=== PATIENT | male | born 1945 | race Caucasian/White ===

== ENCOUNTER → 2016-08-02 | Outpatient (CLI) | payer MEDICARE, OTHER | END | disposition home or self-care (01) | LOC: GMAJ 14:09 | PROVIDERS: ATTEND Family Medicine | DX: R97.20 Elevated prostate specific antigen [PSA] (principal) ==

== ENCOUNTER → 2016-08-26 | Outpatient (CLI) | payer MEDICARE, OTHER ==
--- NOTE | 2016-08-26 15:54 | CT ---
EXAM DESCRIPTION: CT Sinuses CLINICAL HISTORY: SINUSITIS COMPARISON: None. TECHNIQUE: Noncontrast transaxial CT images of the paranasal sinuses are obtained with coronal and sagittal reconstructed images. This exam was performed according to our departmental dose-optimization program, which includes automated exposure control, adjustment of the mA and/or kV according to patient size and/or use of iterative reconstruction technique . FINDINGS: Frontal sinuses are unremarkable. There are areas of [id number] mucosal thickening in the ethmoid air cells right greater than left. Partial right greater than left ethmoidectomies are seen. Soft tissue attenuation probable nasal polyp in the right nasal canal measuring 8 mm seen. Surgical resection of the right middle and inferior turbinate and left inferior turbinate is seen with mild willard bullosa of the left middle turbinate. There is moderate circumferential mucosal thickening in the right maxillary sinus. Surgical resection of a portion of the medial wall of the maxillary sinuses seen right greater than left. There is 3 mm rightward deviation of the inferior mid right bony nasal septum. Mild mucosal thickening in the floor of the sphenoid sinus on the right is seen.. Calcifications of the carotid arteries are noted. Incidentally noted is probable dehiscence or lack of bony covering of the superior aspect of the right internal carotid artery in the foramen lacerum. IMPRESSION: Postsurgical changes from partial right greater than left ethmoidectomies, resection of the right mid and inferior turbinates and left inferior turbinate, and resection of the medial wall of the maxillary sinus right greater than left. Mild to moderate subacute to chronic sinusitis of the right per the left ethmoid, sphenoid, and maxillary sinuses. Mild rightward deviation of the bony nasal septum. Electronically signed by: Delmer Hale MD 08/26/2016 3:54 PM CDT
== END | disposition home or self-care (01) ==
LOC: CT 10:15
PROVIDERS: ATTEND Otolaryngology Otolaryngology/Facial Plastic Surgery
DX: J32.0 Chronic maxillary sinusitis (principal)

== ENCOUNTER → 2017-02-15 | Outpatient (CLI) | payer MEDICARE, OTHER | LOC: GMAJ 19:18 | PROVIDERS: ATTEND Family Medicine | DX: R97.20 Elevated prostate specific antigen [PSA] (principal) ==

== ENCOUNTER → 2017-07-04 | Outpatient (CLI) | payer MEDICARE, OTHER | LOC: GMAJ 10:20 | PROVIDERS: ATTEND Family Medicine | DX: R97.20 Elevated prostate specific antigen [PSA] (principal); M10.00 Idiopathic gout, unspecified site; I10 Essential (primary) hypertension ==

== ENCOUNTER → 2017-11-13 | Outpatient (CLI) | payer MEDICARE, OTHER ==
--- NOTE | 2017-11-13 16:19 | RAD ---
EXAM DESCRIPTION: Wrist,Left 3 Views (accession [id number]), Elbow, left 3 Views (accession [id number]) CLINICAL HISTORY: PAIN IN LEFT WRIST COMPARISON: None. TECHNIQUE: AP, lateral, and oblique images left elbow and left wrist. FINDINGS: Left elbow. Narrowing of the radiocapitellar joint and minimal radial subluxation of the head. Marginal spurs on the ulnotrochlear joint. Traction spur on the medial humeral epicondyle. Anterior effusion with radiodensity in the space on the lateral view between the humerus and the radial head. Spur on the olecranon process. Questionable calcification around this spur or in the triceps tendon. No definite fracture. Minimal narrowing of the radial scaphoid joint with marginal spurs. Normal bone density with no fracture. Sclerosis of the radius and ulna at the distal radioulnar joint. Narrowing of the index metacarpal phalangeal joint, and same joint on the thumb. No fractures. No abnormal radiodense objects in the soft tissues or joint spaces. IMPRESSION: 1. Anterior elbow joint effusion with displacement of the fat pad. Loose body visible between the radial head and humerus on the lateral view. No definite fracture. Calcifications around the olecranon process. Narrowing of the radiocapitellar joint. Marginal spurs ulnotrochlear joint. 2. Narrowing of the radial scaphoid joint of the left wrist. Narrowing of the thumb and index finger metacarpophalangeal joints. No fracture. Electronically signed by: Anshul Medrano MD 11/13/2017 4:18 PM CDT
--- NOTE | 2017-11-13 16:19 | RAD ---
EXAM DESCRIPTION: Wrist,Left 3 Views (accession [id number]), Elbow, left 3 Views (accession [id number]) CLINICAL HISTORY: PAIN IN LEFT WRIST COMPARISON: None. TECHNIQUE: AP, lateral, and oblique images left elbow and left wrist. FINDINGS: Left elbow. Narrowing of the radiocapitellar joint and minimal radial subluxation of the head. Marginal spurs on the ulnotrochlear joint. Traction spur on the medial humeral epicondyle. Anterior effusion with radiodensity in the space on the lateral view between the humerus and the radial head. Spur on the olecranon process. Questionable calcification around this spur or in the triceps tendon. No definite fracture. Minimal narrowing of the radial scaphoid joint with marginal spurs. Normal bone density with no fracture. Sclerosis of the radius and ulna at the distal radioulnar joint. Narrowing of the index metacarpal phalangeal joint, and same joint on the thumb. No fractures. No abnormal radiodense objects in the soft tissues or joint spaces. IMPRESSION: 1. Anterior elbow joint effusion with displacement of the fat pad. Loose body visible between the radial head and humerus on the lateral view. No definite fracture. Calcifications around the olecranon process. Narrowing of the radiocapitellar joint. Marginal spurs ulnotrochlear joint. 2. Narrowing of the radial scaphoid joint of the left wrist. Narrowing of the thumb and index finger metacarpophalangeal joints. No fracture. Electronically signed by: Anshul Medrano MD 11/13/2017 4:18 PM CDT
== END ==
LOC: RAD 10:35
PROVIDERS: ATTEND Orthopaedic Surgery
DX: M25.532 Pain in left wrist (principal); M25.522 Pain in left elbow; M25.422 Effusion, left elbow

== ENCOUNTER → 2018-05-25 | Outpatient (CLI) | payer MEDICARE, OTHER ==
--- NOTE | 2018-05-27 18:30 | CT ---
Procedure: CT LUNG SCREENING Exam Date: 05/25/2018. Ordering Provider: Ez Chavarria Clinical Indication: TOBACCO USE This patient meets eligibility criteria for low-dose CT lung cancer screening. Comparison: None. Technique: Using a multislice scanner, sequential helical axial imaging was obtained in the thorax, 2.5 mm thickness, 2.5 mm separation, from the level of the thoracic inlet through the lung bases without IV contrast. A low dose protocol was utilized: CTDI: 1.75 mGy. 120. kVp. 45 mA. DLP: 67.13 mGy centimeters. 2D sagittal and coronal reconstructed images, 6.0 mm thickness, were obtained. This exam was performed according to our departmental dose optimization program which includes use of automated exposure control, adjustment of the mA and/or kV according to patient size and/or use of iterative reconstruction technique. Nodule measurements under 10 mm are given as mean value of 3 axes diameters. FINDINGS: Lungs and large airways: Small diffuse pulmonary blebs in a centrilobular orientation more prevalent in the upper lung johnson compared to the lower lung johnson. There are larger blebs and some bulla abutting the pleura. Scarring in the inferior lingula and inferior right middle lobe. Focal thickening inferior and superior right major fissure 7 mm solid radiodense nodule at the left pleural base laterally on axial series 2, image 104 bilateral subpleural smaller nodules and calcifications upper lobes, mid medial left apex. Bilateral pleural-parenchymal scarring and/or dependent atelectasis in the lower lobes posterior recesses. Pleura and space: Apical pleural thickening. Scattered bilateral pleural thickening. No effusion or pneumothorax. Mediastinum and ryan: evaluation limited by low dose technique and lack of IV contrast. Negative. Heart and great vessels: Atherosclerotic calcification in the coronary arteries, aortic arch, descending thoracic aorta, and proximal brachiocephalic vessels. Chest wall, lower neck, axillae: Evaluation also limited by same factors as described above. Unremarkable. Upper abdomen: No free fluid or free air. Included organs are unremarkable. Osseous structures: Evaluation limited by low dose MIP technique. Minimal spondylosis on the included thoracic spine. Sternoclavicular arthrosis bilaterally. IMPRESSION: Centrilobular type emphysematous changes in the lungs bilaterally. Bilateral pleural-parenchymal scarring and bibasilar scarring and or dependent atelectasis. 7 mm solid radiodense nodule in the base of the lung abutting the pleura versus focal pleural thickening. [facility] Best Practice recommendations are for six-month low-dose CT lung screening follow-up. Please see below for Lung RADS category and FOLLOW-UP.* *Lung RADS category Category 3 - Probably benign (1-2% malignancy probability), short term follow-up suggested. Nodules: Solid nodule(s) 6mm to less than 8 mm at baseline, or new 4mm to under 6mm solid nodule. Part solid nodule total diameter 6mm to less than 8mm with solid component less than 6mm, or new less than 6mm total diameter nodule] [ground glass nodule(s) 20mm or greater. Follow-up: Please return for a Low Dose Chest CT in 6 months for re-evaluation. Electronically signed by: Anshul Medrano MD 05/27/2018 6:29 PM [facility]
== END ==
LOC: CT 15:09
PROVIDERS: ATTEND Family Medicine
DX: F17.218 Nicotine dependence, cigarettes, with other nicotine-induced disorders (principal)

== ENCOUNTER → 2018-07-18 | Outpatient (CLI) | payer MEDICARE, OTHER | LOC: GMAJ 14:56 | PROVIDERS: ATTEND Family Medicine | DX: M10.00 Idiopathic gout, unspecified site (principal); Z12.5 Encounter for screening for malignant neoplasm of prostate | CPT/HCPCS: 84550; G0103 ==

== ENCOUNTER → 2018-10-17 | Outpatient (CLI) | payer MEDICARE, OTHER | LOC: RAD 14:35 | PROVIDERS: ATTEND Orthopaedic Surgery | DX: M17.12 Unilateral primary osteoarthritis, left knee (principal); M77.32 Calcaneal spur, left foot; M19.022 Primary osteoarthritis, left elbow; M16.12 Unilateral primary osteoarthritis, left hip ==

== ENCOUNTER → 2018-10-31 | Outpatient (CLI) | payer MEDICARE, OTHER ==
--- NOTE | 2018-10-31 14:14 | MRI ---
EXAM DESCRIPTION: Lumbar Spine w/o Contrast : [facility]. CLINICAL HISTORY: Lumbar radiculopathy COMPARISON: None. TECHNIQUE: Multiplanar, multiple standard sequences, non contrast MRI, lumbar spine. FINDINGS: L5-S1: Disc desiccation and disc space preserved. No significant bulging. Thickening of the bilateral posterior flavum ligaments. Canal is patent. Moderate to severe bilateral foraminal narrowing. L4-L5: Posterior disc bulge 5 mm and minimal inferior migration with effacement of the bilateral subarticular recesses. Bilateral flavum ligament thickening. AP canal diameter 9 mm. Grade 1 retrolisthesis 2 mm. L3-L4: Disc desiccation moderate disc space loss. Anterior bulging and endplate ridging. Small inferior endplate Schmorl's nodes. Trace retrolisthesis. Posterior broad-based disc bulge. Bilateral hypertrophic facet arthrosis and thickening of the posterior ligaments. AP canal diameter 8 mm. Disc bulge into the bilateral foramina with moderate narrowing. Small perineural cysts in the right foramen. L2-L3: Disc desiccation and minimal disc space loss. Anterior disc bulging. Schmorl's node superior posterior L3 endplate. Mild to moderate spondylosis. Trace retrolisthesis. Posterior disc spur complex bulging into the canal. Bilateral hypertrophic facet arthrosis and flavum ligament thickening more left than right. AP canal diameter 7 mm. Mild left foraminal narrowing more right foramen patent. L1-L2: Disc desiccation and minimal disc space loss. Anterior disc bulging and endplate ridging. Tiny posterior disc bulge. Hypertrophic bilateral facets with flavum ligament thickening. AP canal diameter 11 mm. Mild left foraminal narrowing with moderate right foraminal narrowing. T12-L1: Anterior loss of height L1 vertebral body compared to L2 and T12 but no marrow edema. Normal signal in the disc with disc space maintained. Conus terminates at this level. Posterior elements unremarkable. Canal and foramina are patent. Bilateral perineural cysts in the foramen abutting the exiting T12 nerves. Normal signal in the conus and distal included cord. Paravertebral soft tissues muscle atrophy.. Otherwise normal marrow signal in the remaining vertebral bodies and the posterior elements. Vertebral bodies are not compressed at any level. IMPRESSION: 1. Posterior L4-L5 disc bulge also effacing the bilateral subarticular recesses. Could be causing bilateral L5 nerve root compromise. Grade 1 retrolisthesis. Mild central canal stenosis. 2. Posterior broad-based L3-L4 disc bulge into the canal and bilateral foramina. Hypertrophy of the posterior elements with mild to moderate canal stenosis centrally. 3. Disc desiccation and L2-L3 disc space loss and hypertrophy of the posterior elements. Multifactorial moderate central canal stenosis. No foraminal significant narrowing or stenosis. 4. Moderate canal narrowing and right foraminal narrowing at L1 and L2 with tiny posterior disc bulge. Hypertrophy of the posterior facets and ligaments. Electronically signed by: Anshul Medrano MD 10/31/2018 2:11 PM CDT
== END ==
LOC: MRI 09:00
PROVIDERS: ATTEND Orthopaedic Surgery
DX: M51.16 Intervertebral disc disorders with radiculopathy, lumbar region (principal); M48.062 Spinal stenosis, lumbar region with neurogenic claudication; M43.16 Spondylolisthesis, lumbar region

== ENCOUNTER → 2019-10-23 | Outpatient (CLI) | payer MEDICARE, OTHER ==
--- NOTE | 2019-10-23 15:36 | MRI ---
EXAM DESCRIPTION: Lumbar Spine w/o Contrast : [facility]. CLINICAL HISTORY: PERSONAL HISTORY OF POLIOMYELITIS COMPARISON: MRI lumbar spine without contrast October 2018. TECHNIQUE: Multiplanar, multiple standard sequences, non contrast MRI, lumbar spine. FINDINGS: L5-S1: The disc is well visualized on axial T2 series 501, image 3. Disc desiccated with disc space maintained. Minimal hypertrophic degeneration of the facet joints and flavum ligaments (canal elements). Canal is patent. Moderate to severe narrowing of the right foramen and borderline stenosis of the left foramen. No interval change. L4-L5: Disc desiccation and minimal disc space loss. Internal calcification or gas in the disc. Anterior and posterior bulge. Schmorl's node posterior inferior L4 endplate. Hypertrophic degenerative changes in the canal elements. Bilateral subarticular recess narrowing or stenosis. AP canal diameter 9 mm. Moderate to severe narrowing right foramen and moderate narrowing left foramen. Stable since the prior study. L3-L4: Disc desiccation and moderate disc space loss. Trace retrolisthesis. Anterior disc bulging. Left posterior disc bulging with prior partial discectomy. Narrowing the subarticular recess and right subarticular recess stenosis. Degenerative hypertrophy of the canal elements. AP canal diameter in the midline 6 mm. Disc bulge into the left foramen with severe narrowing. Moderate narrowing right foramen. No change from the prior study. L2-L3: Disc desiccation and minimal disc space loss, more posterior with Schmorl's nodes and moderate endplate reaction. Anterior bulging and spurs. Posterior broad-based bulge and trace retrolisthesis. Bilateral subarticular recess narrowing. Hypertrophic degeneration of the canal elements, left more than right. AP canal diameter 7 mm. No interval change. L1-L2: Disc desiccation with anterior bulging but disc space maintained. Hypertrophic degeneration of the canal elements. AP canal diameter 11 mm. [id number] left foraminal narrowing and moderate right foraminal narrowing. Anterior loss of height L1 vertebral bodies chronic with no marrow edema. Stable since the prior study. T12-L1: Disc desiccation and disc space maintained. Trace anterolisthesis. Minimal hypertrophic degeneration of the canal elements. Bilateral perineural cysts in the foramina with mild to moderate narrowing. Conus terminates at this level. No change from the prior study. T11-T12: Disc desiccation. Disc protrusion 9 mm in the midline and left of midline impressing on the distal left ventral cord, with 6 mm inferior extrusion and 10 mm superior extrusion. Abutting the left T11 nerve and near stenosis left foramen. New Since the prior study Kyphosis of the upper lumbar spine. Upper lumbar dextroscoliosis. Paravertebral soft tissues muscle atrophy.. Distal cord normal signal and caliber. Otherwise normal marrow signal in the remaining vertebral bodies and the posterior elements. Vertebral bodies are not compressed at any level. IMPRESSION: 1. Multiple levels of desiccated discs with bulging, endplate reactive changes and Schmorl's nodes, degenerative hypertrophy in the flavum ligaments and facet joints, spondylolisthesis and disc/spur encroachment on the subarticular recesses, and canal and foraminal significant narrowing or stenosis. 2. Left posterior midline herniation of the T11-T12 disc impressing on the distal cord but no cord edema. Superior and inferior extrusion. Significant narrowing of the left neural foramen abutting the left T11 nerve. New since the prior study. Correlate with clinical findings. 3. No significant change in findings since the prior study. See above findings for details at each level. Electronically signed by: Anshul Medrano MD 10/23/2019 3:34 PM CDT
== END ==
LOC: MRI 07:43
PROVIDERS: ATTEND Psychiatry & Neurology Neurology
DX: M51.36 Other intervertebral disc degeneration, lumbar region (principal); M51.46 Schmorl's nodes, lumbar region; M46.96 Unspecified inflammatory spondylopathy, lumbar region; M24.28 Disorder of ligament, vertebrae; M43.16 Spondylolisthesis, lumbar region; M48.061 Spinal stenosis, lumbar region without neurogenic claudication; M51.35 Other intervertebral disc degeneration, thoracolumbar region; M51.24 Other intervertebral disc displacement, thoracic region; Z86.12 Personal history of poliomyelitis

== ENCOUNTER → 2019-10-24 | Outpatient (CLI) | payer MEDICARE, OTHER ==
--- NOTE | 2019-10-24 14:55 | MRI ---
EXAM DESCRIPTION: Thoracic Spine w/o Contrast: [facility] Resonance Imaging. CLINICAL HISTORY: POLIOMYELITIS COMPARISON: MRI scan lumbar spine without contrast October 22. TECHNIQUE: Multiplanar, multiple standard sequences, non contrast MRI, thoracic spine. FINDINGS: T11-T12: Posterior midline and left paracentral 7 mm disc protrusion impressing on the left ventral cord and the left T11 nerve. AP canal diameter 7 mm. Degenerative hypertrophy of the flavum ligaments and facet joints more left than right. Moderate to severe bilateral foraminal narrowing. T6-T7 disc desiccation with tiny posterior bulge to the left of midline. No canal or foraminal stenosis. Posterior facets and ligaments are negative. T10-T11 disc space minimally decreased with disc desiccation and tiny posterior bulge. Degenerative hypertrophy of the posterior facets and ligaments with mild canal narrowing but no stenosis. Moderate to severe bilateral foraminal narrowing. T8-T9 disc with minimal desiccation and inferior endplate irregularities T8. Posteriorly minimal ligament and facet hypertrophy. No canal stenosis. Large perineural cyst in the superior right foramen. Smaller cyst superior left foramen. Remaining discs with normal signal. Disc spaces are preserved. Canal and foramina are patent. Facet joints are unremarkable. Conus terminates at T12-L1. Cord with normal signal, no compression. No scoliosis. Paravertebral soft tissues are unremarkable. Heterogeneous marrow signal in the remaining vertebral bodies and the posterior elements. Hyperintense T1 and T2 and STIR signal in the left superior posterior T5 vertebral abutting the pedicle also in the T4 and T6 vertebral bodies. Vertebral bodies are not compressed at any level. IMPRESSION: 1. Herniated T11-T12 disc in the midline into the left of midline with canal stenosis, impingement of the cord, and left T11 nerve. 2. Canal and foraminal narrowing at T10-T11 and T11-T12 secondary to hypertrophic changes in the facet joints and ligaments. Tiny posterior bulge T6-T7. 3. Bilateral perineural cysts T8-T9 foramina. There are inhomogeneities at multiple levels. Please see above FINDINGS for details. Electronically signed by: Anshul Medrano MD 10/24/2019 2:53 PM CDT
== END ==
LOC: MRI 08:02
PROVIDERS: ATTEND Psychiatry & Neurology Neurology
DX: Z86.12 Personal history of poliomyelitis (principal); M71.38 Other bursal cyst, other site; M51.24 Other intervertebral disc displacement, thoracic region; M48.04 Spinal stenosis, thoracic region; M46.94 Unspecified inflammatory spondylopathy, thoracic region; M24.28 Disorder of ligament, vertebrae

== ENCOUNTER → 2019-11-12 | Outpatient (CLI) | payer MEDICARE, OTHER | LOC: GMAJ 14:29 | PROVIDERS: ATTEND Family Medicine | DX: M10.00 Idiopathic gout, unspecified site (principal) ==

== ENCOUNTER → 2019-12-05 | Outpatient (CLI) | payer MEDICARE, OTHER ==
--- NOTE | 2019-12-06 12:23 | MRI ---
EXAM DESCRIPTION: Cervical Spine: MRI. CLINICAL HISTORY: 74 years Male RADICULOPATHY COMPARISON: None. TECHNIQUE: Multiplanar, high-field MRI, multiple sequences, non-contrast Cervical spine. FINDINGS: C3-C4: Minimal disc space loss and desiccation. Anterior and posterior bulging. Bilateral endplate reactive changes more on the right. Bilateral uncinate spurs. Posterior disc bulge abutting the cord. Posterior flavum ligament thickening. Hypertrophic arthrosis right facet. Mild to moderate left neural foraminal narrowing and right neural foraminal mild stenosis. C4-C5: Disc desiccation with disc space maintained. Minimal anterior bulge. Bilateral uncinate spurs larger on the right. Borderline right neural foraminal stenosis and moderate left foraminal narrowing. Disc bulges more to the right of midline with hyperintense T2 annular fissure. AP canal diameter 7.5 mm. Facets are negative. C5-C6: Moderate to severe disc space loss with endplate reactive changes diffusely anterior disc bulge and endplate ridging. Trace retrolisthesis. Posterior disc osteophyte bulge greater to the left of midline along with left uncinate spur. Bilateral neural foraminal stenosis. AP canal diameter to the left midline is 7 mm. C6-C7: Disc desiccation and moderate disc space loss. Anterior bulge and spur abutting the posterior esophagus. 2 mm anterolisthesis with posterior disc bulge in the midline 3 to 4 mm and abutting the cord. Posterior ligament thickening. AP canal diameter 7 mm. Bilateral uncinate spurs larger on the left with neural foraminal stenosis. Moderate right neural foraminal narrowing. Circumscribed hyperintense T1 and T2 hemangioma anterior right C6 vertebral body. Normal signal in the C2-C3 disc, C7-T1 disc, and T1-T2 disc with no bulging. Disc spaces preserved. Canal and neural foramina are patent. Facet joints unremarkable. Spinal alignment upper and mildly straightened and several levels of spondylolisthesis.. Trace levoscoliosis. No cord compression or cord edema. Atlantoaxial joint minimal hypertrophic changes. Base of the cerebellar tonsils is just above the foramen magnum. Paravertebral soft tissues negative. Vertebral bodies are not compressed at any level. Otherwise normal marrow signal in the remaining vertebral bodies and the posterior elements. IMPRESSION: 1. Multiple levels of endplate spondylosis, degenerated discs, uncinate spurs, and narrowed disc spaces. 2. Right neural foraminal stenosis C3-C4. Correlate for right C4 radiculopathy. 3. Borderline right neural foraminal stenosis C4-C5. Correlate for right C5 radiculopathy. Posterior annular fissure in the disc. Mild to moderate central canal stenosis. 4. Spondylosis C5-C6, disc space loss, and trace retrolisthesis. Bilateral neural foraminal stenosis. Correlate for bilateral C6 radiculopathy. Mild to moderate left paracentral canal stenosis. 5. C6-C7 spondylosis and 2 mm anterolisthesis. Posterior disc bulge. Left neural foraminal stenosis. Mild to moderate central canal stenosis. Electronically signed by: Anshul Medrano MD 12/06/2019 12:21 PM CDT
== END ==
LOC: MRI 08:11
PROVIDERS: ATTEND Psychiatry & Neurology Neurology
DX: M50.122 Cervical disc disorder at C5-C6 level with radiculopathy (principal); M47.892 Other spondylosis, cervical region; M43.12 Spondylolisthesis, cervical region; M50.321 Other cervical disc degeneration at C4-C5 level; M25.78 Osteophyte, vertebrae

== ENCOUNTER → 2020-04-17 | Outpatient (CLI) | payer MEDICARE, OTHER | LOC: GMAJ 13:10 | PROVIDERS: ATTEND Family Medicine | DX: E29.1 Testicular hypofunction (principal); I10 Essential (primary) hypertension ==